=== PATIENT | male | born 1955 | race Caucasian/White ===

== ENCOUNTER 2018-07-02 18:13 | Emergency (ER) | payer BC, OTHER ==
[2018-07-02] MEDS ORDERED: diphenhydrAMINE 50 MG CAP PO STA (18:19)
[2018-07-02] MEDS ORDERED: SODIUM CHLORIDE 0.9% 1,000 ML IV STA (18:19)
[2018-07-02] MEDS ORDERED: EPINEPHrine 1 MG/ML 1 ML AMP IM STA (18:19)
[2018-07-02] MEDS ORDERED: FAMOTIDINE 20 MG/2 ML VIAL IV STA (18:19)
[2018-07-02 19:01] LABS: Glucose,Whole Blood 128 mg/dL (75-99)
[2018-07-02] MEDS ORDERED: IPRATROPIUM 0.5 MG/2.5 ML NEBU INHALATION STA (19:08)
[2018-07-02] MEDS ORDERED: ALBUTEROL NEBULIZED 2.5 MG/3 ML INHALATION STA (19:08)
[2018-07-02 19:13] VITALS: TEMP 97.6
--- NOTE | 2018-07-02 19:13 | ED ---
Allergic Reaction HPI - General Chief complaint: Allergic Reaction Stated complaint: Allergic Reaction Bee Sting Time Seen by Provider: 07/02/18 18:18 Source: patient Mode of arrival: EMS Limitations: no limitations - History of Present Illness Initial Comments: 62 years old male was stung on his right hand with a piece he developed an ALLERGIC reaction with hives all over his belly shortness of breath he is a smoker denies any tightening of the throat or swelling of the tongue or the lips. Denies any chest pain no pleuritic chest pain no abdominal pain no frequency urgency dysuria. He had the Benadryl by the EMS he also had Solu- Medrol 125 mg IV along with the 0.3 mg atropine by the EMS he feels somewhat better but still short winded - Related Data Home Medications Medication Instructions Recorded Confirmed Aspirin [Adult Low Dose Aspirin EC] 81 mg PO DAILY 06/19/16 07/02/18 Cholecalciferol [Vitamin D3] 2,000 unit PO DAILY 06/19/16 07/02/18 amLODIPine BESYLATE/BENAZEPRIL 1 cap PO DAILY 07/02/18 07/02/18 [amLODIPine BESYLATE/BENAZEPRIL 10-40 mg] Previous Rx's Medication Instructions Recorded Ranitidine HCl [Zantac] 150 mg PO BID #10 tab 07/02/18 predniSONE 50 mg PO DAILY #5 tablet 07/02/18 Allergies Allergy/AdvReac Type Severity Reaction Status Date / Time No Known Allergies Allergy Verified 07/02/18 19:10 Review of Systems ROS Statement: Those systems with pertinent positive or pertinent negative responses have been documented in the HPI. ROS Other: All systems not noted in ROS Statement are negative. Past Medical History Past Medical History: Hypertension History of Any Multi-Drug Resistant Organisms: None Reported Past Surgical History: No Surgical Hx Reported Past Psychological History: No Psychological Hx Reported Smoking Status: Current every day smoker Past Alcohol Use History: Daily Past Drug Use History: Marijuana General Exam - General Exam Comments Initial Comments: General: The patient is awake and alert, in mild distress Skin: Skin is warm and dry and no rashes or lesions are noted. He has a massive hives all over Eye: Pupils are equal, round and reactive to light, extra-ocular movements are intact; there is normal conjunctiva bilaterally. Ears, nose, mouth and throat: Noticed his upper lip is slightly swollen no swelling of the tongue or the oropharynx Neck: The neck is supple, there is no tenderness or JVD. Cardiovascular: There is a regular rate and rhythm. No murmur, rub or gallop is appreciated. Respiratory: To auscultation bilateral, auscultation is compatible with the COPD and noticed some wheezing Gastrointestinal: Soft, non-distended, non-tender abdomen without masses or organomegaly noted. There is no rebound or guarding present. Bowel sounds are unremarkable. Back: There is no tenderness to palpation in the midline. There is no obvious deformity. Musculoskeletal: Normal ROM, no tenderness, There is no pedal edema. There is no calf tenderness or swelling. No cords were appreciated. Neurological: CN II-XII intact, Cranial nerves III through XII are intact. There are no obvious motor or sensory deficits. Coordination appears grossly intact. Speech is normal. Psychiatric: Cooperative, appropriate mood & affect, normal judgment. Limitations: no limitations Course Vital Signs 07/02/18 07/02/18 07/02/18 18:23 18:27 18:29 Temperature 98.9 F Pulse Rate 82 104 H Respiratory 20 18 18 Rate Blood Pressure 108/63 105/64 O2 Sat by Pulse 97 98 Oximetry 07/02/18 07/02/18 07/02/18 19:12 19:35 19:54 Temperature 97.6 F Pulse Rate 96 100 95 Respiratory 19 Rate Blood Pressure 121/61 O2 Sat by Pulse 99 Oximetry 07/02/18 19:55 Temperature Pulse Rate 95 Respiratory 18 Rate Blood Pressure 117/72 O2 Sat by Pulse 97 Oximetry Patient was given 0.5 mg In the ER he had a 0.3 mg of atropine prior to coming to the ER he had dull Solu-Medrol 125 mg IV by embolus crew we gave him Benadryl 50 mg IV and Pepcid 20 mg IV his vitals been quite stable and I plan to watch it for at least couple of hours. He is reassessed several times now 8 PM he feels great his blood pressure is fine his O2 sat is very well he was to go home Medical Decision Making - Lab Data Lab Results 07/02/18 Range/Units 18:59 POC Glucose (mg/dL) 128 H (75-99) mg/dL POC Glu Treasury Director ID Bianca Hayes Disposition Clinical Impression: Allergic reaction Disposition: HOME SELF-CARE Condition: Good Instructions: Anaphylaxis (ED) Prescriptions: predniSONE 50 mg PO DAILY #5 tablet Ranitidine HCl [Zantac] 150 mg PO BID #10 tab Is patient prescribed a controlled substance at d/c from ED?: No Referrals: Saurabh Dominguez MD [Primary Care Provider] - 1-2 days
[2018-07-02 19:56] VITALS: RESP 18
[2018-07-02 20:41] VITALS: BP 112/66; PULSE 89
== END 2018-07-02 20:37 | disposition home or self-care (01) ==
LOC: EC 18:13
DX: T78.40XA Allergy, unspecified, initial encounter (principal); I10 Essential (primary) hypertension; F17.200 Nicotine dependence, unspecified, uncomplicated; Z79.82 Long term (current) use of aspirin; Z79.899 Other long term (current) drug therapy
CPT/HCPCS: 36415; 94640; 99284; 96374; 96361; 96372; J0171

== ENCOUNTER → 2019-01-31 | Outpatient (CLI) | payer BC ==
[2019-01-31 10:59] LABS: HCT 40.8 % (39.0-53.0); HGB 13.1 gm/dL (13.0-17.5); MCH 32.8 pg (25.0-35.0); MCHC 32.1 g/dL (31.0-37.0); Macrocytosis Slight; Mean Platelet Volume 7.1; Platelet Count 223 k/uL (150-450); RDW 13.2 % (11.5-15.5); WBC 8.1 k/uL (3.8-10.6)
[2019-01-31 11:07] LABS: INR 0.9 (<1.2); Partial Thromboplastin Time 25.6 sec (22.0-30.0)
[2019-01-31 11:21] LABS: Potassium 5.2 mmol/L (3.5-5.1)
[2019-01-31 12:31] LABS: Appearance,Urine Clear (Clear); Bilirubin,Urine Negative (Negative); Blood,Urine Negative (Negative); Color,Urine Yellow; Glucose,Urine (UA) Negative (Negative); Hyaline Casts,Urine 4 /lpf (0-2); Ketones,Urine Negative (Negative); Leukocyte Esterase,Urine Negative (Negative); Mucus,Urine Occasional /hpf; Nitrite,Urine Negative (Negative); PH, Urine 5.5 (5.0-8.0); Protein,Urine 1+ (Negative); RBC,Urine <1 /hpf (0-5); Specific Gravity,Urine 1.026 (1.001-1.035); Squamous Epithelial Cell,Urine <1 /hpf (0-4); WBC,Urine 2 /hpf (0-5)
== END | disposition home or self-care (01) ==
LOC: LABPAT 09:36
PROVIDERS: ATTEND Orthopaedic Surgery
DX: Z01.818 Encounter for other preprocedural examination (principal); Z01.812 Encounter for preprocedural laboratory examination; M17.12 Unilateral primary osteoarthritis, left knee
CPT/HCPCS: 80051; 81001; 82565; 84520; 85027; 85610; 85730; 87070; 93005

== ENCOUNTER 2019-02-23 07:00 | Inpatient (IN) | payer BC ==
[~2019-02-23 07:00] MED LIST: ACETAMINOPHEN TAB 500 MG TAB PO ONE; DEXAMETHASONE SOD PHOSPHATE 10 MG/ML 1 ML VIAL IV ONE; HYDROmorphone 0.5 MG/0.5 ML SYRINGE IVP PRN; MELOXICAM 7.5 MG TAB PO ONE; MIDAZOLAM (PF) 2 MG/2 ML VIAL IV PRN; ONDANSETRON 4 MG/2 ML VIAL IVP ONE; ROPIVACAINE 246.25 MG, EPINEPHrine 0.5 MG, KETOROLAC 30 MG, cloNIDine HCL/PF 80 MCG, WA... MISCELLANE ONE; SCOPOLAMINE 1.5MG/72HR PATCH TRANSDERM ONE; TRANEXAMIC ACID 1,000 MG in SODIUM CHLORIDE 0.9% 100 ML IVPB ONE; ceFAZolin IN SWFI 2 GM/20 ML SYRINGE IVP ONE
[2019-02-23] MEDS: LACTATED RINGERS 1,000 ML IV SCH (08:40)
[2019-02-23] MEDS ORDERED: ACETAMINOPHEN TAB 500 MG TAB PO ONE (08:40)
[2019-02-23] MEDS ORDERED: DEXAMETHASONE SOD PHOS (MDV) 100 MG/10 ML VIAL IVP ONE (08:40)
[2019-02-23] MEDS ORDERED: ONDANSETRON 4 MG/2 ML VIAL IVP ONE (08:40)
[2019-02-23] MEDS ORDERED: fentaNYL (PF) 50 MCG/ML 2 ML AMP IVP ONE (08:49)
[2019-02-23] MEDS ORDERED: MIDAZOLAM (PF) 2 MG/2 ML VIAL IVP ONE (08:49)
[2019-02-23] MEDS ORDERED: MAGNESIUM HYDROXIDE 2,400 MG/10 ML CUP PO PRN (08:52)
[2019-02-23] MEDS ORDERED: hydrOXYzine PAMOATE 25 MG CAP PO PRN (08:52)
[2019-02-23] MEDS ORDERED: NALOXONE 0.4 MG/ML 1 ML VIAL IV PRN (08:52)
[2019-02-23] MEDS ORDERED: DIAZEPAM 5 MG TAB PO PRN (08:52)
[2019-02-23] MEDS ORDERED: ONDANSETRON 4 MG/2 ML VIAL IVP PRN (08:52)
[2019-02-23] MEDS ORDERED: HYDROmorphone 1 MG/ML 1 ML SYRINGE IVP PRN (08:52)
[2019-02-23] MEDS ORDERED: BISACODYL 10 MG SUPP RECTAL PRN (08:52)
[2019-02-23] MEDS ORDERED: HYDROmorphone 0.5 MG/0.5 ML SYRINGE IVP PRN ×2 (08:52)
[2019-02-23] MEDS ORDERED: HYDROcodone/APAP 5-325MG 1 EACH TAB PO PRN (08:52)
[2019-02-23] MEDS ORDERED: NA PHOS,M-B/NA PHOS,DI-BA 133 ML ENEMA RECTAL PRN (08:52)
[2019-02-23] MEDS ORDERED: ASPIRIN 325 MG TAB PO SCH (09:00)
[2019-02-23] MEDS ORDERED: ceFAZolin 3,000 MG in SODIUM CHLORIDE 0.9% IRRIGATIO 3,000 ML IRRIGATION ONE (09:26)
[2019-02-23] MEDS ORDERED: ROPIVACAINE 1,100 MG, SODIUM CHLORIDE 0.9% 500 ML 330 ML MISCELLANE PRN ×2 (09:28)
--- NOTE | 2019-02-23 09:30 | P.ONQ ---
Anesthesiology Proc Note - PNB - Peripheral Nerve Block Performed Left Adductor Canal Infusion Time Out Performed: Yes Procedure Start Time: 08:34 Indication: Acute Post-Operative Pain Specifically requested for management of pain by DrAjay: Fabrizio Simon Sedation Type: Sedate with meaningful contact maintained Preparation: Sterile Prep Position: Supine Catheter Depth at Skin (cm): 6 Catheter: Indwelling Needle Types: Other (see comment) (Pajunk) Needle Size: 100mm (4") Needle Gauge: 18 Technique: Ultrasound Injectate: 0.5% Ropivacaine (see comment for volume) (20 cc) Blood Aspirated: No Pain Paresthesia on Injection Noted: No Resistance on Injection: Normal Events: Uneventful and Well Tolerated
[2019-02-23] MEDS ORDERED: LACTATED RINGERS 1,000 ML IV ONE ×2 (09:55)
--- NOTE | 2019-02-23 10:49 | P.OP ---
Date of Procedure: 02/23/19 Preoperative Diagnosis: Severe osteoarthritis left knee Postoperative Diagnosis: Severe osteoarthritis left knee Procedure(s) Performed: Left total knee arthroplasty Implants: Hoff and Nephew Journey II CR Oxinium cruciate retaining femoral component size 7, left Hoff & Nephew Journey left nonporous tibial baseplate size 7 Hoff & Nephew Journey II, XLPE CR articular insert, size 9 mm, Size 7-8 left Hoff & Nephew Journey BCS resurfacing oval patellar component, 32 mm All components were cemented using Palacos R bone cement.. The articulation is Oxinium on polyethylene. Anesthesia: spinal Surgeon: Fabrizio Simon Ceramic Tiler #1: Lissette Leiva Estimated Blood Loss (ml): 25 Pathology: other (bone and cartilage) Condition: stable Disposition: PACU Indications for Procedure: After failure of conservative treatment we discussed the surgical and nonsurgical treatment options at length. Patient wishes to proceed with a total knee arthroplasty. Complications specific to this procedure were discussed at length, including but not limited to infection, bleeding, stiffness, and nerve injury. Patient is aware of all these complications and informed consent was obtained Operative Findings: The operative findings are consistent with severe osteoarthritis of the left knee Description of Procedure: Patient was seen in the preoperative area consent was reviewed and operative site was marked with a skin marker. An adductor canal pain catheter was placed by anesthesia in the preoperative area. Patient was then brought to the operating room and given preoperative antibiotics intravenously. A spinal anesthetic was administered by the anesthesia department. A tourniquet was placed on the upper thigh and the lower extremity was prepped and draped in usual sterile fashion. A gram of transexamic acid was given. A universal timeout was then performed which confirmed the patient's name, surgical site, ALLERGIES, and consent. The lower extremity was then exsanguinated and tourniquet was inflated to 250 mmHg. A standard and anterior midline approach to the knee was performed. The skin and subcutaneous tissue was dissected down to the patellar tendon. A medial parapatellar arthrotomy was then performed. The knee was then extended, the patellar was everted, and the knee was again flexed. Anterior horns of both menisci were excised, and a release was performed to the posterior medial aspect of the knee. On gross visual inspection, there was complete loss of articular cartilage in the medial and patellofemoral joint spaces. There was also significant cartilage damage in the lateral compartment. There were multiple periarticular osteophytes which were then removed with a Ronguer. The femoral canal was then opened with the appropriate drill, and the intramedullary femoral cutting guide was then placed and set for 5 of valgus. The distal femoral cutting block was then pinned in place, and the distal femur was then cut. The cutting block was then removed and the cut was checked for flatness. Next, the sizing guide was then placed and set for 3 external rotation based off of the epicondylar axis and Whitesides line. After the femur was sized, the appropriate 4-in-1 cutting block was then pinned in place. The anterior condyles were cut without notching. The posterior and chamfer cuts were performed while protecting the collateral ligaments. The cutting block was then removed, and the femoral canal was plugged with autologous bone. Attention was then directed to the tibia. The remaining ACL was removed with a Ronguer, and the tibia was then gently subluxed forward with a large bent knee retractor. Any remaining menisci was excised. The posterior lateral corner was cauterized in order to cauterize the lateral geniculate artery. The extra medullary tibial cutting guide was then placed, set for the appropriate rotation, slope, and depth of resection. The proximal tibia cutting guide was then pinned in place. Proximal tibia was then cut and sized. Next trials were then placed with the appropriate-sized insert. The knee was able to fully extend and flex to 130 and was stable throughout all range of motion. The knee was then extended, patella everted. Patella was then measured, and then using an osteotomy guide, the patella was cut at the appropriate level. The patella was then measured and drilled and the patella trial was then placed. The knee was then taken through range of motion with the patella trial and the patella tracked normally. The knee was then extended patella trial was then removed and the patella was everted. Knee was then flexed and lug holes were drilled through the femoral trial and the femoral trial was then removed. The tibial was then exposed, and the tibial broach guide was then pinned in place after it was set for the appropriate rotation to allow for the most coverage without overhang. The tibia was then reamed and broached. The cut surfaces of bone were then irrigated with pulsatile lavage. The posterior structures were injected with the ropivacaine solution. The knee was also irrigated with Irrisept solution. The components were then opened, the cement was mixed, and the components were then cemented in place. The cement was allowed to harden with the knee in full extension. While the cement was hardening, the remaining soft tissues were then injected with a ropivacaine solution, which consisted of 246.25 mg of ropivacaine, 0.5 mg of epinephrine, 30 mg of Toradol, 80 g of clonidine, and 48.45 mL of sterile water, for a total of 100 mL of fluid injected. After the cemented hardened. The tourniquet was released, and hemostasis was obtained. A second gram of transexamic acid was given. The knee was again irrigated. The knee was again taken through range of motion and found to be stable throughout all range of motion of 0-130, and the patella tracked normally. The fascia was then closed with #2 strata fix suture. The subcutaneous tissue was closed with 3-0 Vicryl and 3-0 strata fix. Dermabond glue was used for the skin and placed with the knee in flexion. The patient was placed in a sterile silver dressing. Patient was then transferred to recovery room in stable condition. The [facility] care [facility] assistant director JARETH Kyle was required due the complexity surgery and the need for a skilled ophthalmology assistant. She assisted in positioning, draping, retraction, and closure of the wound.
[2019-02-23] MEDS ORDERED: SODIUM CHLORIDE 0.9% 100 ML BAG ONE (11:53)
[2019-02-23] MEDS ORDERED: PROPOFOL 10 MG/ML 20 ML VIAL IV ONE (11:53)
[2019-02-23] MEDS ORDERED: GLYCOPYRROLATE 0.2 MG/ML 2 ML VIAL ONE (11:53)
[2019-02-23] MEDS ORDERED: TRANEXAMIC ACID 1,000 MG/10 ML VIAL ONE (11:53)
[2019-02-23] MEDS ORDERED: MIDAZOLAM 2 MG/2 ML VIAL ONE (11:53)
[2019-02-23] MEDS ORDERED: fentaNYL (PF) 50 MCG/ML 2 ML AMP ONE (11:53)
--- NOTE | 2019-02-23 11:59 | XR ---
EXAMINATION TYPE: XR knee limited LT DATE OF EXAM: 02/23/2019 CLINICAL HISTORY: Left knee pain and arthritis status post total knee replacement. TECHNIQUE: Portable AP and crosstable lateral views of the left knee are obtained immediately postop eratively. COMPARISON: None FINDINGS: Metallic hardware from total left knee arthroplasty is seen and appears satisfactory in al ignment and position. There is evidence of recent surgery with diffuse subcutaneous gas , and soft t issue swelling noted. IMPRESSION: METALLIC HARDWARE FROM TOTAL LEFT KNEE ARTHROPLASTY IS SATISFACTORY IN ALIGNMENT.
[2019-02-23] MEDS: MELOXICAM 7.5 MG TAB PO SCH (17:37)
[2019-02-23] MEDS: SODIUM CHLORIDE 0.9% 1,000 ML IV SCH (18:10)
[2019-02-23] MEDS: HYDROcodone/APAP 5-325MG 1 EACH TAB PO PRN (18:11)
[2019-02-23] MEDS: ceFAZolin IN SWFI 2 GM/20 ML SYRINGE IVP SCH ×2 (18:11→23:58)
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
[2019-02-23] MEDS ORDERED: SENNOSIDES-DOCUSATE SODIUM 1 EACH TAB PO SCH (21:00)
[2019-02-24] MEDS: HYDROcodone/APAP 5-325MG 1 EACH TAB PO PRN ×2 (03:50→10:43)
[2019-02-24] MEDS: SODIUM CHLORIDE 0.9% 1,000 ML IV SCH (06:43)
[2019-02-24] MEDS: MELOXICAM 7.5 MG TAB PO SCH (06:43)
[2019-02-24] MEDS: LACTATED RINGERS 1,000 ML IV SCH (06:44)
[2019-02-24 07:27] VITALS: BP 144/80; PULSE 67; RESP 14; TEMP 98.4
[2019-02-24 08:04] LABS: Basophils % (A) 0 %; Eosinophils # (A) 0.1 k/uL (0-0.7); Eosinophils % (A) 0 %; HCT 39.5 % (39.0-53.0); HGB 12.3 gm/dL (13.0-17.5); Lymphocytes # (A) 2.1 k/uL (1.0-4.8); Lymphocytes % (A) 17 %; MCH 31.1 pg (25.0-35.0); MCHC 31.2 g/dL (31.0-37.0); MCV 99.6 fL (80.0-100.0); Mean Platelet Volume 7.1; Monocytes % (A) 8 %; Neutrophils # (A) 9.4 k/uL (1.3-7.7); Neutrophils % (A) 74 %; Platelet Count 198 k/uL (150-450); RBC 3.97 m/uL (4.30-5.90); RDW 12.9 % (11.5-15.5); WBC 12.7 k/uL (3.8-10.6)
[2019-02-24] MEDS ORDERED: amLODIPine 10 MG TAB PO SCH (09:00)
[2019-02-24] MEDS ORDERED: MELOXICAM 7.5 MG TAB PO SCH (09:00)
--- NOTE | 2019-02-24 09:23 | P.DS ---
Providers Date of admission: 02/23/19 07:45 Expected date of discharge: 02/24/19 Attending physician: Fabrizio Simon Consults: 02/23/19 08:52 Consult Physician Routine Consulting Provider: Saurabh Dominguez Consult Reason/Comments: medical management Do you want consulting provider notified?: Yes 02/23/19 16:41 Consult Physician Routine Consulting Provider: Roney Modi Consult Reason/Comments: medical managment Do you want consulting provider notified?: Yes Primary care physician: Saurabh Dominguez - Discharge Diagnosis(es) (1) S/P total knee arthroplasty Current Visit: Yes Status: Acute (2) Osteoarthritis of left knee Current Visit: Yes Status: Acute Hospital Course: This is a 63-year-old male with known history of degenerative arthritis of the lef knee. The patient presents for evaluation. After discussion and consideration patient elects to proceed with total knee arthroplasty. The patient is seen preoperatively by Dr. Simon and medically cleared for surgery by their primary care physician. Patient is admitted to [facility] on 02/23/2019 for total knee arthroplasty. The procedures performed without complication or sequelae. The patient is doing well postoperatively. Labs and vital signs are stable on day of discharge. On day of discharge patient's knee incision is healing well. There is minimal erythema. There is no drainage noted at this time. There is minimal soft tissue swelling to the knee. Patient has full foot and ankle motion without difficulty or pain. Calf is soft and nontender to palpation. Neurovascular status to the left lower extremity is intact. Patient is discharged home in good condition. Opioid start talking form is reviewed and signed at patient bedside. Please see med rec for accurate list of home medications. Plan - Discharge Summary Discharge Rx Participant: Yes New Discharge Prescriptions: New Aspirin 325 mg PO BID #60 tab HYDROcodone/APAP 5-325MG [[place] 5-325] 1 - 2 tab PO Q6HR PRN #56 tab PRN Reason: Pain Sennosides [Senokot] 1 tab PO BID #60 tablet No Action Cholecalciferol [Vitamin D3] 2,000 unit PO DAILY Aspirin [Adult Low Dose Aspirin EC] 81 mg PO DAILY Famotidine [Pepcid] 40 mg PO DAILY Ibuprofen [Motrin Ib] 800 mg PO DIRECTED PRN PRN Reason: Pain amLODIPine BESYLATE/BENAZEPRIL [amLODIPine BESYLATE/BENAZEPRIL 10-40 MG] 1 cap PO DAILY Discharge Medication List Aspirin [Adult Low Dose Aspirin EC] 81 mg PO DAILY 06/19/16 [History] Cholecalciferol [Vitamin D3] 2,000 unit PO DAILY 06/19/16 [History] Famotidine [Pepcid] 40 mg PO DAILY 02/13/19 [History] Ibuprofen [Motrin Ib] 800 mg PO DIRECTED PRN 02/13/19 [History] amLODIPine BESYLATE/BENAZEPRIL [amLODIPine BESYLATE/BENAZEPRIL 10-40 MG] 1 cap PO DAILY 02/16/19 [History] Aspirin 325 mg PO BID #60 tab 02/24/19 [Rx] HYDROcodone/APAP 5-325MG [[place] 5-325] 1 - 2 tab PO Q6HR PRN #56 tab 02/24/19 [Rx] Sennosides [Senokot] 1 tab PO BID #60 tablet 02/24/19 [Rx] Follow up Appointment(s)/Referral(s): Fabrizio Simon DO [Doctor of Osteopathic Medicine] - 2 Weeks Activity/Diet/Wound Care/Special Instructions: Weightbearing as tolerated with a walker. CPM 5-6h daily. Leave dressing intact. May be removed by home care nurse or by patient in 10 days. May shower with dressing on. Please follow up with [facility] and call with any questions or concerns, . Discharge Disposition: HOME WITH HOME HEALTH SERVICES
--- NOTE | 2019-02-24 09:24 | P.PN ---
Subjective Progress Note Date: 02/24/19 Patient is doing well today. He was up with physical therapy. Pain is well controlled. Objective - Vital Signs Vital signs: Vital Signs Temp 98.4 F 02/24/19 07:02 Pulse 67 02/24/19 07:02 Resp 14 02/24/19 07:02 BP 144/80 02/24/19 07:02 Pulse Ox 96 02/24/19 07:02 Intake & Output 02/23/19 02/24/19 02/24/19 18:59 06:59 18:59 Intake Total 2000 Output Total 25 400 Balance 1975 - Intake: IV 2000 Output: Urine 400 Estimated Blood Loss 25 Other: Voiding Method Toilet Urinal # Voids 1 - Exam General: The patient is awake and alert, in no distress Eye: there is normal conjunctiva bilaterally. Neck: The neck is supple, there is no JVD. Cardiovascular: Normal S1-S2, no S3-S4, no murmurs. Respiratory: Lungs clear to auscultation bilaterally Gastrointestinal: Abdomen is soft, nontender Musculoskeletal: There is no pedal edema. Neurological:. Speech is normal. Skin: Skin is warm and dry - Labs CBC & Chem 7: 02/24/19 07:44 Labs: Abnormal Lab Results - Last 24 Hours (Table) 02/24/19 Range/Units 07:44 WBC 12.7 H (3.8-10.6) k/uL RBC 3.97 L (4.30-5.90) m/uL Hgb 12.3 L (13.0-17.5) gm/dL Neutrophils # 9.4 H (1.3-7.7) k/uL Assessment and Plan Assessment: 1. Postoperative day #1 status post total left knee arthroplasty. Continue postoperative care per orthopedic. 2. DVT prophylaxis with aspirin twice daily per orthopedic protocol 3. Physical debility, awaiting PT/OT evaluation 4. Essential hypertension: Blood pressure within acceptable range. Resume home medication Today, I reviewed his medication list and lab work results. Patient is medically cleared for discharge
[2019-02-24 09:29] VITALS: BMI 25.2
--- NOTE | 2019-02-24 13:24 | P.PN ---
Progress Note - Text Anesthesia POD 1. Patient is status post left TKR under spinal anesthesia with a left adductor canal catheter placed for postoperative pain relief. With ropivacaine 0.2% running at 8 cc's per hour, the patient's VAS is (1, 3). Catheter site is clean dry and intact.
[2019-02-24] MEDS ORDERED: ASPIRIN 325 MG TAB PO SCH (21:00)
== END 2019-02-24 12:10 | disposition home health service (06) | DRG 470 ==
LOC: 2ORMAIN 07:45 → 4SSUR 16:33
PROVIDERS: ADMIT Orthopaedic Surgery; ATTEND Orthopaedic Surgery
PROC: 0SRD069 Replacement of Left Knee Joint with Oxidized Zirconium on Polyethylene Synthetic Substitute, Cemented, Open Approach (ICD-10-PCS; principal; 2019-02-23 09:20)
DX: M17.12 Unilateral primary osteoarthritis, left knee (principal); I10 Essential (primary) hypertension; K21.9 Gastro-esophageal reflux disease without esophagitis; F17.210 Nicotine dependence, cigarettes, uncomplicated; R53.81 Other malaise; Z79.82 Long term (current) use of aspirin; Z79.899 Other long term (current) drug therapy; Z86.19 Personal history of other infectious and parasitic diseases; Z86.79 Personal history of other diseases of the circulatory system; Z86.718 Personal history of other venous thrombosis and embolism; Z91.030 Bee allergy status; Z83.3 Family history of diabetes mellitus; Z82.49 Family history of ischemic heart disease and other diseases of the circulatory system
CPT/HCPCS: 85025; 88300

== ENCOUNTER → 2020-03-25 | Outpatient (CLI) | payer OTHER ==
[2020-03-25 12:37] LABS: HCT 45.5 % (39.0-53.0); HGB 14.3 gm/dL (13.0-17.5); MCH 32.3 pg (25.0-35.0); MCHC 31.4 g/dL (31.0-37.0); MCV 102.7 fL (80.0-100.0); Macrocytosis Slight; Mean Platelet Volume 7.7; Platelet Count 237 k/uL (150-450); RBC 4.43 m/uL (4.30-5.90); RDW 12.7 % (11.5-15.5); WBC 9.6 k/uL (3.8-10.6)
[2020-03-25 12:59] LABS: Potassium 4.5 mmol/L (3.5-5.1)
== END | disposition home or self-care (01) ==
LOC: LABPAT 11:37
PROVIDERS: ATTEND Internal Medicine Interventional Cardiology
DX: Z01.818 Encounter for other preprocedural examination (principal); I48.0 Paroxysmal atrial fibrillation
CPT/HCPCS: 36415; 80051; 82565; 84520; 85027

== ENCOUNTER → 2020-03-31 | Day surgery (SDC) | payer OTHER ==
[~2020-03-31] MED LIST changes: -ACETAMINOPHEN TAB 500 MG TAB PO ONE; -DEXAMETHASONE SOD PHOSPHATE 10 MG/ML 1 ML VIAL IV ONE; -HYDROmorphone 0.5 MG/0.5 ML SYRINGE IVP PRN; +LACTATED RINGERS 1,000 ML IV SCH; -MELOXICAM 7.5 MG TAB PO ONE; -MIDAZOLAM (PF) 2 MG/2 ML VIAL IV PRN; -ONDANSETRON 4 MG/2 ML VIAL IVP ONE; +PROPOFOL 10 MG/ML 20 ML VIAL IV ONE; -ROPIVACAINE 246.25 MG, EPINEPHrine 0.5 MG, KETOROLAC 30 MG, cloNIDine HCL/PF 80 MCG, WA... MISCELLANE ONE; -SCOPOLAMINE 1.5MG/72HR PATCH TRANSDERM ONE; +SODIUM CHLORIDE 0.9% 1,000 ML IV SCH; -TRANEXAMIC ACID 1,000 MG in SODIUM CHLORIDE 0.9% 100 ML IVPB ONE; -ceFAZolin IN SWFI 2 GM/20 ML SYRINGE IVP ONE
[2020-03-31 08:00] VITALS: RESP 16
--- NOTE | 2020-03-31 10:43 | CE ---
CARDIAC ELECTROPHYSIOLOGY REPORT DATE OF SERVICE: 03/31/2020. PROCEDURE: Electrical cardioversion. PERFORMED BY: Dr. Jacque Townsend. CLINICAL INFORMATION: Mr. Faust is a 64-year-old gentleman with history of hypertension, recent onset atrial fibrillation persistent, who also has history of smoking, COPD and recently had some eye surgery. Because of persistent atrial fibrillation after adequately anticoagulating him, he was brought in for electrical cardioversion with due discussion regarding risks, benefits, options and rationale. PROCEDURE NOTE: Under the influence of ultra short-acting intravenous anesthetic agent with the attendance of the anesthesiologist, a single 200 joule shock was delivered to the chest with anterior and posterior patches. Patient converted to sinus rhythm, remained hemodynamically stable and neurologically intact. This was a successful electrical cardioversion. I expect the patient to be discharged in the next few hours. I will see him in the office in one week. MMMARIA ELENAL / JUAN MANUELN: [id number] /
[2020-03-31 11:12] VITALS: BP 128/79; PULSE 58
== END ==
LOC: CATHCVL 06:23
PROVIDERS: ATTEND Internal Medicine Interventional Cardiology
DX: I48.91 Unspecified atrial fibrillation (principal); I10 Essential (primary) hypertension; E78.5 Hyperlipidemia, unspecified; J44.9 Chronic obstructive pulmonary disease, unspecified; F17.210 Nicotine dependence, cigarettes, uncomplicated; F10.21 Alcohol dependence, in remission; H33.21 Serous retinal detachment, right eye; Z79.82 Long term (current) use of aspirin; Z79.52 Long term (current) use of systemic steroids; Z79.01 Long term (current) use of anticoagulants; Z79.899 Other long term (current) drug therapy
CPT/HCPCS: 92960

== ENCOUNTER → 2023-06-12 | Outpatient (CLI) | payer MEDICARE ==
[2023-06-12 16:14] LABS: African American GFR (CKD) 49 (>60 ml/min/1.73 sqM); Blood Urea Nitrogen 46 mg/dL (9-20); Non-African American GFR(CKD) 43 (>60 ml/min/1.73 sqM)
--- NOTE | 2023-06-12 17:24 | CT ---
EXAMINATION TYPE: CT angio lower extremity RT DATE OF EXAM: 06/12/2023 COMPARISON: HISTORY: RT FEMORAL STENT PLACED 8 WEEKS AGO AT ANOTHER FACILITY. POSS EMBOLISM OF RT EXTREMITY. PT S TATES RT LEG TINGLE AND PAIN. CT DLP: 1116.90 mGycm Automated exposure control for dose reduction was used. Contrast: None Technique: Axial images 2 mm thick sections. Reconstructed images performed by the technologist on a separate computer. Three-D reconstructed images are reviewed. FINDINGS: Distal abdominal aorta appears normal. The common iliac internal and external iliac vessels are paten t. There is some plaquing at the bifurcation of the common iliac vessels. Common femoral artery on th e right is patent. Left common femoral artery extends out of the field of view Profunda femoris is normal. There is occlusion of the superficial femoral artery at its origin. Stent is evident within the distal superficial femoral artery on the right extending into the obturator ca nal. At the junction with the superficial femoral artery and popliteal artery collateral vascular rec onstitutes the popliteal artery. Plaquing is present focal areas of narrowing. Popliteal artery is pa tent to above the knee. Level of the knee joint space cannot be evaluated due to excessive beam harde jez artifact from prosthesis. However, the popliteal artery is patent below the level of the knee in to the trifurcation vessels. Right trifurcation vessels have contrast and appear to be patent to the level of the ankle. Three-D reconstructed images are reviewed. The superficial femoral artery obstruction is evident. The stent obscures the source image information nonobstructed stent. Collateral flow extending into the distal superficial femoral artery popliteal artery junction region is evident on the 3-D reconstructe d images. IMPRESSION: 1. OBSTRUCTION OF THE SUPERFICIAL FEMORAL ARTERY AT ITS ORIGIN TO BELOW THE LEVEL OF THE RIGHT SUPERF ICIAL FEMORAL ARTERY STENT AT THE OBTURATOR CANAL. POPLITEAL ARTERY AND TRIFURCATION VESSELS APPEAR T O BE PATENT COLLATERAL FLOW AND ARE EVIDENT WITH CONTRAST AT THE ANKLE.
== END | disposition home or self-care (01) ==
LOC: RADCTMAIN 15:33
PROVIDERS: ATTEND Family Medicine
DX: I74.3 Embolism and thrombosis of arteries of the lower extremities (principal)
CPT/HCPCS: 82565; 84520; 36415; 73706; Q9967

== ENCOUNTER → 2024-12-04 | Outpatient (CLI) | payer MEDICARE ==
--- NOTE | 2024-12-04 10:50 | CT ---
EXAMINATION TYPE: CT chest wo con DATE OF EXAM: 12/04/2024 COMPARISON: Prior chest CT June 11, 2016 HISTORY: f/u nodule CT DLP: 452.4 mGycm. Automated Exposure Control for Dose Reduction was Utilized. TECHNIQUE: CT scan of the thorax is performed without IV contrast. FINDINGS: LUNGS: Mild underlying emphysematous changes redemonstrated. Stable 2 mm tiny nodule peripheral right upper lobe axial image 24. There is 3 mm nodule in the inferior right upper lobe image 2990 clearly seen on prior study. There is 2 mm peripheral left lower lobe nodule axial image 45 that is stable fr om prior study. No new greater than 6 mm pulmonary nodules. MEDIASTINUM: Lack of IV contrast is noted to limit evaluation for mediastinal and especially hilar ad enopathy. There are no new definitive greater than 1 cm hilar or mediastinal lymph nodes. Stable prom inent but subcentimeter pericarinal lymph node axial image 24 presumed benign. No cardiomegaly or per icardial effusion is seen. Moderate to severe three-vessel coronary artery calcification is present OTHER: Slight low dense thickening the left adrenal gland favoring benign lipid rich hyperplasia is r edemonstrated. There is nonspecific new exophytic 1.7 cm lesion laterally upper pole left kidney axia l image 61. Hounsfield units greater than simple fluid. IMPRESSION: 1. A few tiny bilateral pulmonary nodules. No greater than 5 mm pulmonary nodules are evident bilater ally. Consider optional CT follow-up in 1 year time to reassess as per Fleischner Society recommendat ions if patient is high risk. 2. Nonspecific 1.7 cm exophytic lesion laterally upper pole left kidney. Cannot solid mass or neoplas m. Advise imaging follow-up to further evaluate. [facility], , 12/04/2024 10:48 AM
== END | disposition home or self-care (01) ==
LOC: RADCTMAIN 10:04
PROVIDERS: ATTEND Family Medicine
DX: R91.1 Solitary pulmonary nodule (principal)
CPT/HCPCS: 71250

== ENCOUNTER → 2024-12-27 | Outpatient (CLI) | payer MEDICARE ==
--- NOTE | 2024-12-27 13:45 | MR ---
EXAMINATION TYPE: MR abdomen wo/w con DATE OF EXAM: 12/27/2024 12:17 PM INDICATION: Patient age:Male; 69 years old; Reason for study: D49.519 [facility]; [facility]. COMPARISON: CT chest 12/04/2024, 06/11/2016 TECHNIQUE: Multiplanar multi-sequence imaging was performed without and with IV contrast.The patient was given 9.5 ccs of Gadobutrol intravenously and dynamic imaging was performed. Post IV contrast morocho btraction images were also submitted for review. FINDINGS: LOWER CHEST: No gross irregularity. ABDOMEN Liver: Unremarkable. Gallbladder and Bile ducts: Gallbladder appears unremarkable. No intrahepatic biliary ductal dilatati on. Extrahepatic biliary ductal dilatation with the common bile duct measuring up to 9 mm and the com mon hepatic duct measuring up to 6 mm. No filling defects or abrupt cut off of the duct identified. N o visualized stenosis. Pancreas: Unremarkable. Spleen: Unremarkable. Adrenal glands: Unremarkable. Kidneys: No hydronephrosis. Prominent right extrarenal pelvis. Exophytic left renal upper pole T2 hyp ointense 2.1 cm lesion. Exophytic right renal lower pole T2 hypointense 2.3 cm lesion. Both of these lesions demonstrate subtle T1 hyperintensity and do not demonstrate internal enhancement. No internal septations. Several bilateral T2 hyperintense thin wall cysts with largest in the left kidney measur ing up to 2.2 cm. A couple other smaller bilateral renal cortical cysts demonstrate intrinsic T1 hype rintense signal. Bilateral perinephric fat stranding. Stomach and Bowel: Unremarkable as visualized. Peritoneum: No evidence of pneumoperitoneum, free fluid, or adenopathy. Vasculature: Unremarkable. No aortic aneurysm. Abdominal wall: Small fat filled umbilical hernia. Musculoskeletal: The osseous structures appear intact. Multilevel degenerative changes of the visuali zed spine. IMPRESSION: 1. Several bilateral simple renal cysts (Bosniak 1). Additional bilateral T2 hyperintense nonenhanci ng renal cysts corresponding to CT finding. (Bosniak 2). 2. Mildly dilated extrahepatic biliary duct without evidence for choledocholithiasis, stricture, or obstructing mass lesion. [facility], , 12/27/2024 1:42 PM
== END | disposition home or self-care (01) ==
LOC: RADMRIMAIN 10:48
PROVIDERS: ATTEND Family Medicine
DX: N28.1 Cyst of kidney, acquired (principal); D49.519 Neoplasm of unspecified behavior of unspecified kidney; K83.8 Other specified diseases of biliary tract
CPT/HCPCS: 74183; A9585

== ENCOUNTER 2025-05-12 08:34 | Emergency (ER) | payer MEDICARE ==
[2025-05-12 10:11] LABS: Basophils # (A) 0.05 10*3/uL (0.00-0.10); Basophils % (A) 0.6 %; Eosinophils # (A) 0.14 10*3/uL (0.04-0.35); Eosinophils % (A) 1.6 %; HCT 39.3 % (39.6-50.0); HGB 13.2 g/dL (13.0-17.0); Lymphocytes % (A) 21.6 %; MCH 33.7 pg (27.0-32.0); MCHC 33.6 g/dL (32.0-37.0); MCV 100.3 fL (80.0-97.0); Mean Platelet Volume 10.2 fL (9.5-12.2); Monocytes # (A) 0.74 10*3/uL (0.20-1.00); Monocytes % (A) 8.4 %; Neutrophils # (A) 5.96 10*3/uL (1.80-7.70); Neutrophils % (A) 67.6 %; Platelet Count 173 10*3/uL (140-440); RBC 3.92 10*6/uL (4.40-5.60); RDW 14.3 % (11.5-14.5); WBC 8.81 10*3/uL (4.50-10.00)
--- NOTE | 2025-05-12 10:21 | XR ---
EXAMINATION TYPE: XR chest 2V DATE OF EXAM: 05/12/2025 10:10 AM COMPARISON: None. CLINICAL INDICATION: Male, 69 years old with history of dysrhythmia, TECHNIQUE: XR chest 2V view(s) obtained. FINDINGS: The heart size is normal. The pulmonary vasculature is normal. The lungs are clear. IMPRESSION: 1. No acute pulmonary process. [facility], , 05/12/2025 10:19 AM
[2025-05-12 10:23] LABS: Prothrombin Time 10.9 sec (10.0-12.5)
[2025-05-12 10:37] LABS: ALT 25 U/L (4-49); African American GFR (CKD) 41 (>60 ml/min/1.73 sqM); Albumin 4.4 g/dL (3.5-5.0); Anion Gap 14 mmol/L; Blood Urea Nitrogen 46 mg/dL (9-20); Calcium 9.7 mg/dL (8.4-10.2); Carbon Dioxide 13 mmol/L (22-30); Chloride 111 mmol/L (98-107); Glucose 88 mg/dL (74-99); Non-African American GFR(CKD) 35 (>60 ml/min/1.73 sqM); Sodium 138 mmol/L (137-145); Total Bilirubin 0.7 mg/dL (0.2-1.3); Total Protein 7.1 g/dL (6.3-8.2)
[2025-05-12 10:42] LABS: AST 35 U/L (17-59); Alkaline Phosphatase 66 U/L (38-126); Magnesium 1.8 mg/dL (1.6-2.3); Potassium 5.4 mmol/L (3.5-5.1)
[2025-05-12 10:46] VITALS: RESP 16
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
[2025-05-12 11:31] VITALS: BP 132/88; PULSE 55; TEMP 98.6
== END 2025-05-12 11:31 | disposition home or self-care (01) ==
LOC: EC 08:34
DX: R00.2 Palpitations (principal); Z91.030 Bee allergy status
CPT/HCPCS: 36415; 71046; 80053; 83735; 84443; 84484; 85025; 85610; 85730; 93005; 99285